=== PATIENT | female | born 1940 | race Caucasian/White ===

== ENCOUNTER 2021-12-18 16:30 | Emergency (ER) | payer MEDICARE, SELFPAY ==
--- NOTE | ~2021-12-18 | XR_ITS ---
EXAMINATION: XR chest 2V DATE: 12/18/2021 17:40 INDICATION: Productive cough TECHNIQUE: PA and lateral views of the chest are obtained. COMPARISON: None available FINDINGS: The lungs are free of acute opacities. There is no pleural effusion or pneumothorax. The ca rdiomediastinal silhouette is normal. There is moderate thoracic spondylosis. IMPRESSION: 1. No acute cardiopulmonary abnormality. Reviewed, dictated and finalized at location F.
[2021-12-18 17:18] VITALS: BP 170/87; PULSE 125; RESP 18; TEMP 36.6; O2SAT 97
--- NOTE | 2021-12-18 17:21 | ED.URI ---
HPI - URI/Sore Throat General Chief Complaint: Upper Respiratory Infection Stated Complaint: Cough Time Seen by Provider: 12/18/21 17:20 History of Present Illness HPI Narrative: Radha Salazar yan 81 yo female with PMH of high choleterol comes to [facility] with 4 to 5 days of cough and nasal congestion, took 2 COVID test 2 days apart that were both negative, continues to feel poorly. Is tachycardic on general evaluation in triage but is afebrile Related Data Home Medications Medication Instructions Recorded Confirmed pravastatin 20 mg tablet 1 tablet PO DAILY 12/18/21 12/18/21 Allergies Allergy/AdvReac Type Severity Reaction Status Date / Time No Known Allergies Allergy Verified 12/18/21 17:01 Review of Systems Review of Systems: CONSTITUTIONAL: Denies fever, chills, sweats. EYES: Denies visual changes, redness, discharge. ENT: Denies rhinorrhea, congestion, sore throat, otalgia. CARDIOVASCULAR: Denies chest pain, palpitations, edema. RESPIRATORY: Denies dyspnea, wheezing, cough GASTROINTESTINAL: Denies abdominal pain, nausea, vomiting, diarrhea. GENITOURINARY: Denies dysuria, hematuria, abnormal discharge SKIN: Denies rash or itching. NEUROLOGIC: Denies numbness, or focal weakness. PSYCHIATRIC: Denies anxiety or depression. [facility]LY [facility] Past Medical History Medical History High cholesterol Comments At time of signature, I agree with nursing past medical, surgical, social and family history. There is no relevant family history pertinent to the presenting complaint. Exam Narrative: GENERAL: This is a well-nourished, well-developed patient, in mild distress. HEAD: normocephalic, atraumatic. EYES: Sclera clear/white. Vision is grossly intact. EARS: External ears normal, auditory canals clear and without drainage, TMs normal without perforation. Hearing grossly intact. NOSE: External nose normal with nasal discharge, nares without redness, has rhinorrhea. THROAT: Mucous membranes moist, posterior pharynx mild erythema NECK: Neck supple, non-tender CARDIOVASCULAR: Tachycardic rate and rhythm without murmurs, gallops, or rubs. RESPIRATORY: Coarse to auscultation. Breath sounds equal bilaterally. No wheezes, rales, or rhonchi. GASTROINTESTINAL: Abdomen soft, non-tender, SKIN: warm, intact with no suspicious lesions or rash, good texture and turgor. NEURO: awake, alert, and oriented to person, place and time. There were no obvious focal neurologic abnormalities. Steady gait EXTREMITIES: Normal range of motion. BACK: Nontender without deformity Course Course Emergency Course: Patient here with multiple days of congestion and cough that seems to be worsening even though she is taking Mucinex DM with her claritin D [id number]; she is coughing and states that she has a coughing spell intermittently that has disrupted her sleep To negative COVID test at home 2 days apart Negative flu test here Chest Xray -no acute cardiopulmonary abnormality, lungs are free of acute opacities no pleural effusion or pneumothorax, the cardiomediastinal silhouette is normal Started on Zithromax, steroids, Tessalon Perles Level of Care: Express Care Visit Vital Signs Vital signs: Vital Signs Temperature 97.9 F 12/18/21 17:18 Pulse Rate 125 H 12/18/21 17:18 Respiratory Rate 18 12/18/21 17:18 Blood Pressure 170/87 H 12/18/21 17:18 Pulse Oximetry 97 12/18/21 17:18 Oxygen Delivery Room Air 12/18/21 17:18 Temperature 97.9 F 12/18/21 17:18 Pulse Rate 125 H 12/18/21 17:18 Respiratory Rate 18 12/18/21 17:18 Blood Pressure 170/87 H 12/18/21 17:18 Pulse Oximetry 97 12/18/21 17:18 Oxygen Delivery Room Air 12/18/21 17:18 MDM - URI/Sore Throat Differential Diagnosis Differential diagnosis: Likely upper respiratory infection, sinusitis, bronchitis, pharyngitis and other Lab Data Labs: Influenza A Screen Negative
== END 2021-12-18 18:08 | disposition home or self-care (01) ==
PROVIDERS: Emergency Provider Nurse Practitioner; PCP Internal Medicine
DX: J40 Bronchitis, not specified as acute or chronic (principal); E78.00 Pure hypercholesterolemia, unspecified
CPT/HCPCS: 71046; 87804; 99203; G0463